=== PATIENT | male | born 1995 | race Caucasian/White ===

== ENCOUNTER 2023-09-09 15:59 | Outpatient (OUT) | payer BC, SELFPAY ==
--- NOTE | 2023-09-09 16:10 | XR_ITS ---
[facility] [id number] Patient Name: NEFTALY MEDEIROS MRN: [id number] date: 1995 Sex: M Assigned Patient Location: RAD Current Patient Location: RAD Accession/Order Number: [id number] Exam Date: 09/09/2023 16:15 Report Date: 09/09/2023 20:24 At the request of: IRVING RYAN Procedure: XR foot RT min 3V EXAM: XR foot RT min 3V HISTORY: M79.671 pain in right foot . Previous trauma. COMPARISON: None. TECHNIQUE: AP, lateral, oblique x-ray right foot. FINDINGS: Normal alignment. Normal mineralization. No fracture or healing fracture or focal bone lesion. The joint spaces. No erosive or destructive change. Continued unremarkable, no foreign body XR/XR foot RT min 3V IMPRESSION: Negative right foot. No fracture or healing fracture seen Electronically authenticated by: TY BARON Date: 09/09/2023 20:24
== END 2023-09-09 16:00 | disposition home or self-care (01) ==
LOC: RAD 16:04
PROVIDERS: PCP Family Medicine; Visit Provider Family Medicine
DX: M79.671 Pain in right foot (principal)
CPT/HCPCS: 73630